=== PATIENT | male | born 1950 | race Caucasian/White ===

== ENCOUNTER 2021-06-01 08:56 | Outpatient (CLI) | payer MEDICARE, SELFPAY ==
--- NOTE | ~2021-06-01 | CT_ITS ---
EXAMINATION: CT abdomen pelvis wo con DATE: 06/01/2021 09:18 INDICATION: Right flank pain TECHNIQUE: Computed tomography (CT) of the abdomen and pelvis was performed without intravenous contr ast. The dose-length product (DLP) was 180.98 mGy-cm. Automated exposure control and iterative recons truction technique were employed. COMPARISON: None FINDINGS: The lung bases are clear. The heart size is normal. The liver, spleen, pancreas, gallbladde r, and adrenal glands are normal. The kidneys are unremarkable. No stones are identified in the kidne ys, ureters, or bladder. There is no hydronephrosis or hydroureter. There is calcified atherosclerosi s of the aorta and many of the other arteries. No pathologically enlarged abdominal or pelvic lymph n odes are identified. There is no free intraperitoneal gas or evidence of bowel obstruction. There is moderate lumbar spondylosis. IMPRESSION: 1. No CT correlate for the patient's symptoms. Reviewed, dictated and finalized at location A.
--- NOTE | ~2021-06-01 | XR_ITS ---
EXAMINATION: XR abdomen/kub 1V INDICATION: Right flank pain and hematuria TECHNIQUE: Supine views of the abdomen were obtained on 2 radiographs. COMPARISON: CT from today FINDINGS: No urolithiasis is identified. The bowel gas pattern is normal. 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 Calcification projecting between the left L2 and L3 transverse processes reflects calc ified atherosclerosis. There is levoscoliosis and moderate spondylosis of the lumbar spine. IMPRESSION: 1. No urolithiasis identified. Reviewed, dictated and finalized at location A.
== END 2021-06-01 08:57 | disposition home or self-care (01) ==
LOC: ANHIMG 08:57
PROVIDERS: PCP Family Medicine; Visit Provider Physician Assistant Medical
DX: R10.9 Unspecified abdominal pain (principal); R31.9 Hematuria, unspecified
CPT/HCPCS: 74018; 74176

== ENCOUNTER 2022-01-08 00:01 | Day surgery (SDC) | payer MEDICARE, SELFPAY ==
[2021-12-28 10:32] VITALS: BMI 23.1
[2022-01-08 09:35] VITALS: BP 144/92; PULSE 62; RESP 20; TEMP 36.4; O2SAT 100; BMI 23.4
[2022-01-08] MEDS: LACTATED RINGERS 1,000 ML 150 ML IV CONT (09:49)
[2022-01-08 09:50] LABS: Glucose Point of Care 106 mg/dl (65-105)
--- NOTE | 2022-01-08 10:01 | WPDANESEPPF ---
Anes - Initial Pre Proc Eval Procedure: Operation Date: 01/08/22 11:00 Proposed Procedures p Screening Colonoscopy - Delfin Boateng MD Date/Time: 01/08/22 10:01 Surgeon: Delfin Boateng MD Pre Op Diagnosis: hx of colon polyps Patient Data Age: 71 Gender: M Height: 1.78 m Weight: 74.1 kg Last Vital Signs Temp 97.5 F L 01/08/22 09:35 Pulse 62 01/08/22 09:35 Resp 20 01/08/22 09:35 BP 144/92 H 01/08/22 09:35 Pulse Ox 100 01/08/22 09:35 Allergies Allergy/AdvReac Type Severity Reaction Status Date / Time No Known Allergies Allergy Mild Verified 01/08/22 09:34 Home Medications Medication Instructions Recorded Confirmed Type cyanocobalamin (vitamin B-12) 1,000 mcg PO DAILY #100 cap 12/09/19 12/28/21 Rx 1,000 mcg capsule cholecalciferol (vitamin D3) 25 mcg PO DAILY 12/28/21 12/28/21 History [Vitamin D3] lisinopril 10 mg PO DAILY 12/28/21 12/28/21 History lovastatin 10 mg PO DAILY 12/28/21 12/28/21 History metformin 500 mg PO DAILY 12/28/21 12/28/21 History Laboratory Tests 01/08/22 09:47 POC Capillary Glucose 106 mg/dl H mg/dl (65-105) Patient hx anesthesia problems: none Family hx anesthesia problems: none Results Review: All pre-operative results and documents have been reviewed as part of the pre-operative evaluation. [facility] Family History Family History Other Depression Diabetes mellitus Family history of cardiovascular disease Hypertension Social History Social History (Updated 12/14/21 @ 09:24 by STACI Iyer) Smoking status: Former smoker Tobacco type: cigarettes Alcohol intake: current Drinks per week: 7 Alcohol use details: wine Substance use type: does not use Living arrangements: with family Gender identity (if verbalized by the patient): Male Spiritual care concerns: No Anes - Eval Final PreProcedure Day of Procedure 01/08/22 10:01 Patient weight: normal Heart: regular rate and rhythm Lungs: clear to auscultation Airway: Mallampati scale class II Neurological: alert and oriented Last oral intake: >/= 8 hours ASA classification: III Emergent: no Anesthetic plan: proceed Anesthesia type and monitoring: general GIVS and standard monitoring Results Review: All pre-operative results and documents have been reviewed as part of the pre-operative evaluation. Informed Consent: The patient's anesthetic plan and its attendant risks and benefits were discussed with the patient/family/POA. Questions were solicited and answers provided to the satisfaction of the patient/family/POA.
--- NOTE | 2022-01-08 10:24 | P.CONGI_ITS ---
Assessment and Plan Assessment and plan (1) History of colon polyps: Code(s): Z86.010 - Personal history of colonic polyps Status: Acute Assessment and Plan: Patient has a prior history of adenomatous colon polyps. Plan is for surveillance colonoscopy at this time. Further recommendations will be given after endoscopy. GI Consult Note Consult date/time: 01/08/22 10:24 HPI: Randall King is a 71 year old male Presents for screening colonoscopy. Patient's current weight appetite and bowel movements are normal. He denies abdominal pain. He has had no bleeding. He does have a prior history of colon polyps. Most recent colonoscopy 2017. Family history is noncontribut ory. patient presents today for neoplasia screening. Review of Systems Review of Systems: All systems reviewed & are unremarkable except as noted in HPI and below PMFSH Family History Family History Other Depression Diabetes mellitus Family history of cardiovascular disease Hypertension Social History Social History (Updated 12/14/21 @ 09:24 by STACI Iyer) Smoking status: Former smoker Tobacco type: cigarettes Alcohol intake: current Drinks per week: 7 Alcohol use details: wine Substance use type: does not use Living arrangements: with family Gender identity (if verbalized by the patient): Male Spiritual care concerns: No Meds Home Medications and Allergies Home Medications Medication Instructions Recorded Confirmed Type cyanocobalamin (vitamin B-12) 1,000 mcg PO DAILY #100 cap 12/09/19 12/28/21 Rx 1,000 mcg capsule cholecalciferol (vitamin D3) 25 mcg PO DAILY 12/28/21 12/28/21 History [Vitamin D3] lisinopril 10 mg PO DAILY 12/28/21 12/28/21 History lovastatin 10 mg PO DAILY 12/28/21 12/28/21 History metformin 500 mg PO DAILY 12/28/21 12/28/21 History Allergies Allergy/AdvReac Type Severity Reaction Status Date / Time No Known Allergies Allergy Mild Verified 01/08/22 09:34 Vital Signs Vital Signs - 24 hr 01/08/22 09:35 Temperature 97.5 F L Pulse Rate 62 Respiratory Rate 20 Blood Pressure 144/92 H Pulse Oximetry 100 Exam Narrative: Physical exam reveals patient to be alert. Vital signs stable. HEENT exam is unremarkable. Patient is anicteric. Lungs are clear to auscultation and percussion. Heart is without murmur or extra sounds. Abdominal exam bowel sounds are present soft nontender with no organomegaly. Digital external rectal exam is normal.
--- NOTE | 2022-01-08 10:54 | SUR.OPER ---
Sigmoid Colon Polypectomies- only 2 retrieved of [address] Boateng notified by Anna Hernandez RN, Christen Rivera RN, Renate Santos.
[2022-01-08 10:55] VITALS: BP 95/69; PULSE 77; RESP 18; O2SAT 97
[2022-01-08 11:05] VITALS: BP 102/70; PULSE 84; RESP 20; O2SAT 100
[2022-01-08 11:15] VITALS: BP 118/88; PULSE 71; RESP 19; O2SAT 99
== END 2022-01-08 11:20 | disposition home or self-care (01) ==
PROVIDERS: PCP Family Medicine; Visit Provider Internal Medicine Gastroenterology
PROC: 0DJD8ZZ Inspection of Lower Intestinal Tract, Via Natural or Artificial Opening Endoscopic (ICD-10-PCS; CPT 45378; principal; 2022-01-08 11:00)
DX: Z12.11 Encounter for screening for malignant neoplasm of colon (principal); D12.5 Benign neoplasm of sigmoid colon; K63.5 Polyp of colon; Z87.891 Personal history of nicotine dependence
CPT/HCPCS: 45385; 82948; 88305; J2704; J7120

== ENCOUNTER 2023-03-29 09:14 | Outpatient (CLI) | payer MEDICARE, SELFPAY ==
[2023-03-29 15:21] LABS: Basophils Absolute Auto 0.1 K/mm3 (0.0-0.1); Eosinophils Absolute Auto 0.1 K/mm3 (0-0.3); Eosinophils Percent Auto 2.3 % (0-4.4); Hematocrit 40.7 % (42.0-52.0); Hemoglobin 13.4 g/dL (14.0-18.0); Immature Granulocyte Absolute 0.02 K/mm3 (0.00-0.031); Immature Granulocyte Percent A 0.3 % (0-0.5); Lymphocytes Absolute Auto 1.98 K/mm3 (0.9-3.2); Lymphocytes Percent Auto 33.1 % (18.3-44.2); Mean Corpuscular HGB Conc 32.9 g/dl (32-36); Mean Corpuscular Hemoglobin 29.4 pg (26-34); Mean Corpuscular Volume 89.3 fl (80-100); Mean Platelet Volume 8.8 fl (7.4-10.4); Monocytes Absolute Auto 0.6 K/mm3 (0.1-0.6); Monocytes Percent Auto 9.5 % (2.6-8.5); Neutrophils Absolute Auto 3.2 K/mm3 (1.3-6.7); Neutrophils Percent Auto 53.8 % (45.5-73.1); Platelet Count Result 295 k/mm3 (150-375); Red Blood Count 4.56 M/mm3 (4.6-6.20); Red Cell Distribution Width 13.2 % (11.5-14.5)
[2023-03-29 17:16] LABS: Alanine Aminotransferase 26 U/L (6-50); Albumin Level 4.5 g/dL (3.5-5.1); Alkaline Phosphatase 64 U/L (38-126); Anion Gap 8 mmol/L (8-16); Aspartate Amino Transferase 38 U/L (17-59); Bilirubin,Total 0.6 mg/dL (0.2-1.3); Blood Urea Nitrogen 20 mg/dL (9-20); Calcium 9.1 mg/dL (8.4-10.2); Carbon Dioxide 26 mmol/L (22-30); Chloride 103 mmol/L (98-107); Cholesterol 189 mg/dL (0-200); Estimated Glomerular Filt Rate > 60; Glucose 107 mg/dL (65-110); HDL Direct 44 mg/dL; Potassium 4.2 mmol/L (3.4-5.0); Sodium 137 mmol/L (137-145); Triglycerides 125 mg/dL (<150)
[2023-03-29 17:27] LABS: LDL Cholesterol Direct 130 mg/dL
[2023-03-29 18:27] LABS: Hemoglobin A1C 6.1 % (<5.7)
== END 2023-03-29 09:15 | disposition home or self-care (01) ==
LOC: ANHGOSHLAB 09:16
PROVIDERS: PCP Family Medicine; Visit Provider Physician Assistant
DX: E78.2 Mixed hyperlipidemia (principal); I10 Essential (primary) hypertension; R73.03 Prediabetes; Z79.899 Other long term (current) drug therapy; Z12.5 Encounter for screening for malignant neoplasm of prostate
CPT/HCPCS: 36415; 80053; 80061; 83036; 84153; 84443; 85025; G0103

== ENCOUNTER 2023-10-04 09:09 | Outpatient (CLI) | payer MEDICARE, SELFPAY ==
[2023-10-04 19:40] LABS: Alanine Aminotransferase 26 U/L (6-50); Albumin Level 4.3 g/dL (3.5-5.1); Alkaline Phosphatase 71 U/L (38-126); Anion Gap 8 mmol/L (8-16); Aspartate Amino Transferase 40 U/L (17-59); Bilirubin,Total 0.5 mg/dL (0.2-1.3); Blood Urea Nitrogen 20 mg/dL (9-20); Calcium 9.2 mg/dL (8.4-10.2); Carbon Dioxide 27 mmol/L (22-30); Chloride 104 mmol/L (98-107); Cholesterol 207 mg/dL (0-200); Estimated Glomerular Filt Rate > 60; Glucose 110 mg/dL (65-110); HDL Direct 49 mg/dL; Sodium 139 mmol/L (137-145); Triglycerides 132 mg/dL (<150)
[2023-10-04 19:47] LABS: Hemoglobin A1C 6.2 % (<5.7)
[2023-10-04 19:51] LABS: LDL Cholesterol Direct 131 mg/dL
== END 2023-10-04 09:10 | disposition home or self-care (01) ==
PROVIDERS: PCP Family Medicine; Visit Provider Family Medicine
DX: E78.5 Hyperlipidemia, unspecified (principal); R73.03 Prediabetes
CPT/HCPCS: 36415; 80053; 80061; 83036

== ENCOUNTER 2024-03-31 09:23 | Outpatient (CLI) | payer MEDICARE, SELFPAY ==
[2024-03-31 13:21] LABS: Basophils Absolute Auto 0.1 K/mm3 (0.0-0.1); Eosinophils Absolute Auto 0.1 K/mm3 (0-0.3); Eosinophils Percent Auto 1.4 % (0-4.4); Hematocrit 40.1 % (42.0-52.0); Hemoglobin 13.4 g/dL (14.0-18.0); Immature Granulocyte Absolute 0.02 K/mm3 (0.00-0.031); Immature Granulocyte Percent A 0.3 % (0-0.5); Lymphocytes Absolute Auto 1.96 K/mm3 (0.9-3.2); Lymphocytes Percent Auto 33.9 % (18.3-44.2); Mean Corpuscular HGB Conc 33.4 g/dl (32-36); Mean Corpuscular Volume 89.7 fl (80-100); Mean Platelet Volume 8.9 fl (7.4-10.4); Monocytes Absolute Auto 0.7 K/mm3 (0.1-0.6); Monocytes Percent Auto 11.2 % (2.6-8.5); Neutrophils Percent Auto 52.2 % (45.5-73.1); Platelet Count Result 305 k/mm3 (150-375); Red Blood Count 4.47 M/mm3 (4.6-6.20); Red Cell Distribution Width 13.1 % (11.5-14.5); White Blood Count 5.8 K/mm3 (4.5-10.0)
[2024-03-31 13:56] LABS: Alanine Aminotransferase 22 U/L (6-50); Albumin Level 4.6 g/dL (3.5-5.1); Alkaline Phosphatase 62 U/L (38-126); Anion Gap 8 mmol/L (4-12); Aspartate Amino Transferase 55 U/L (17-59); Bilirubin,Total 0.6 mg/dL (0.2-1.3); Blood Urea Nitrogen 25 mg/dL (9-20); Calcium 9.3 mg/dL (8.4-10.2); Carbon Dioxide 25 mmol/L (22-30); Chloride 106 mmol/L (98-107); Cholesterol 195 mg/dL (0-200); Estimated Glomerular Filt Rate > 60; Glucose 114 mg/dL (65-110); HDL Direct 48 mg/dL; Potassium 4.1 mmol/L (3.4-5.0); Sodium 139 mmol/L (137-145); Triglycerides 137 mg/dL (<150)
[2024-03-31 14:04] LABS: Vitamin D 25 Hydroxy 62.9 ng/mL
[2024-03-31 14:07] LABS: LDL Cholesterol Direct 124 mg/dL
[2024-03-31 14:48] LABS: Vitamin B12 > 1000.0 pg/mL (239-931)
== END 2024-03-31 09:24 | disposition home or self-care (01) ==
PROVIDERS: PCP Family Medicine; Visit Provider Family Medicine
DX: D64.9 Anemia, unspecified (principal); R73.03 Prediabetes; R29.890 Loss of height; E78.5 Hyperlipidemia, unspecified; E55.9 Vitamin D deficiency, unspecified
CPT/HCPCS: 36415; 80053; 80061; 82306; 82607; 83036; 85025

== ENCOUNTER 2024-05-14 07:19 | Outpatient (CLI) | payer MEDICARE, SELFPAY ==
[2024-06-04 12:39] VITALS: BMI 23.6
--- NOTE | 2024-06-04 12:39 | WPDSLEEPSTUD ---
Sleep Study Date of Study: 05/14/24 Ordering Provider: Miguel Aviles MD Interpreting Physician: Merline Giordano DO Sleep Study Type: CPAP Titration Height: 1.78 m Weight: 74.843 kg Body Mass Index: 23.6 Neck Circumference (inches): 16 [place]: 7 Reason for Sleep Study Increased daytime hypersomnia despite using CPAP Sleep History The patient is 74 year with DONNA on CPAP that had a sleep study ordered by his primary care physician for worsening daytime hypersomnia. The patient denies awakening from sleep short of breath. He rarely awakens at night with heartburn, belching or. He occasionally has trouble sleeping has a cold. He denies waking up gasping for air throughout the night. He rarely sweats excessively at night. He denies having heart palpitations or irregular heartbeats during the night. He frequently falls asleep during the day but never while driving. He denies sleep paralysis, cataplexy and hypnagogic / hypnopompic hallucinations. He denies feeling afraid of going to sleep. He denies having nightmares. He denies remembering his dreams. He rarely has thoughts racing through his mind. He rarely feels sad or depressed. He denies having anxiety. He rarely has muscular tension. He denies noticing parts of his body jerk. He denies kicking during the night. He denies having crawling and aching feelings in his legs and rarely has leg pain during the he denies awakening with jaw pain in the morning. He frequently is bothered by pain during the day but never awakened by pain during the night. He denies waking feeling stiff morning. He rarely wakes up with sore or achy muscles. He denies waking up with pain in the neck, spine other joints. He goes to bed between 10:30-11 p.m. on both weekdays and weekends. It takes him 5-10 minutes to fall asleep. He wakes up several times throughout the night tossing and turning. He wakes up between 5:30-6 a.m. on both weekdays and weekends. He typically gets 7 hours of sleep per night. He does not stay in bed after waking up in the morning. Currently lives with his . He denies consuming any caffeinated beverages within 2 hours of bedtime. He denies engaging in physical exercise before bedtime. He denies watching television before falling asleep. He will take naps in the afternoon or the evening. He consumes 12 oz of caffeinated beverage per day. He consumes a glass of wine every night. He denies recreational drug use. [facility] Family History Family History Other Depression Diabetes mellitus Family history of cardiovascular disease Hypertension Social History Social History Smoking status: Former smoker Tobacco type: cigarettes Alcohol intake: current Drinks per week: 7 Alcohol use details: wine Substance use type: does not use Lack of Transportation: No Lack of Food: Never True Current Housing: I Have Housing Concerned About Future Housing: No Difficulty Paying Gas/Electric Bills: No Difficulty Paying for Meds: No Currently Unemployed: No Education: Bachelor's Degree Difficulty w/ Childcare or Family Care: No Living arrangements: with family Gender identity (if verbalized by the patient): Male Spiritual care concerns: No Medications Home Medications Medication Instructions Recorded Confirmed Type cyanocobalamin (vitamin B-12) 1,000 mcg PO DAILY #100 caps 12/09/19 04/06/24 Rx 1,000 mcg capsule cholecalciferol (vitamin D3) 25 25 mcg PO DAILY 12/28/21 04/06/24 History mcg (1,000 unit) tablet (Vitamin D3) aspirin 81 mg tablet,delayed 81 mg PO DAILY 07/23/22 04/06/24 History release (Adult Low Dose Aspirin) sildenafil 100 mg tablet (Viagra) 100 mg PO DAILY PRN sexual 04/01/23 04/06/24 Rx activity #30 tabs lisinopril 10 mg tablet See Rx Instructions .Route 04/15/24 Rx .COMPLEX
== END 2024-05-15 06:05 | disposition home or self-care (01) ==
PROVIDERS: PCP Family Medicine; Visit Provider Family Medicine
DX: G47.33 Obstructive sleep apnea (adult) (pediatric) (principal)
CPT/HCPCS: 95811

== ENCOUNTER 2024-10-13 09:03 | Outpatient (CLI) | payer MEDICARE, SELFPAY ==
[2024-10-13 14:00] LABS: Alanine Aminotransferase 18 U/L (6-50); Albumin Level 4.4 g/dL (3.5-5.1); Alkaline Phosphatase 65 U/L (38-126); Anion Gap 10 mmol/L (4-12); Aspartate Amino Transferase 42 U/L (17-59); Bilirubin,Total 0.6 mg/dL (0.2-1.3); Blood Urea Nitrogen 27 mg/dL (9-20); Calcium 8.9 mg/dL (8.4-10.2); Carbon Dioxide 26 mmol/L (22-30); Chloride 102 mmol/L (98-107); Cholesterol 188 mg/dL (0-200); Estimated Glomerular Filt Rate > 60; Glucose 96 mg/dL (65-110); HDL Direct 46 mg/dL; Sodium 138 mmol/L (137-145); Triglycerides 123 mg/dL (<150)
[2024-10-13 14:10] LABS: Vitamin D 25 Hydroxy 63.2 ng/mL
[2024-10-13 14:11] LABS: LDL Cholesterol Direct 108 mg/dL
[2024-10-13 14:40] LABS: MALB Creatinine Ratio 41.6 mg/g (0-30); Microalbumin Urine Random 31.2 mg/L (0-16.7)
[2024-10-13 19:23] LABS: Hemoglobin A1C 6.1 % (<5.7)
== END 2024-10-13 09:04 | disposition home or self-care (01) ==
LOC: ANHGOSHLAB 09:04
PROVIDERS: PCP Family Medicine; Visit Provider Family Medicine
DX: R29.890 Loss of height (principal); E11.9 Type 2 diabetes mellitus without complications; E55.9 Vitamin D deficiency, unspecified
CPT/HCPCS: 36415; 80053; 80061; 82043; 82306; 83036

== ENCOUNTER 2025-01-06 18:20 | Emergency (ER) | payer MEDICARE, SELFPAY ==
[2025-01-06 18:34] VITALS: BP 154/89; PULSE 65; RESP 16; TEMP 37.1; O2SAT 99
[2025-01-06 18:42] LABS: EDUAAPPEAR Cloudy; EDUABILI Negative (Negative); EDUABLOOD 3+ (Negative); EDUACOLOR1 Dark; EDUAGLUCOSE Negative (Negative); EDUAKETONE Negative (Negative); EDUALEUKO Negative (Negative); EDUANITRATE Negative (Negative); EDUAPH 5.5; EDUAPROTEIN 2+ (Negative); EDUAUROBILI 0.2
--- NOTE | 2025-01-06 18:54 | ED.MALEGU ---
HPI - Male Genitourinary General Chief complaint: Urogenital-Male Stated complaint: UTI Time Seen by Provider: 01/06/25 18:55 Related Data Home Medications ?Medication ?Instructions ?Recorded ?Confirmed ?Last Taken ?Type cholecalciferol (vitamin D3) 25 25 mcg PO DAILY 12/28/21 10/16/24 01/07/22 History mcg (1,000 unit) tablet (Vitamin D3) aspirin 81 mg tablet,delayed 81 mg PO DAILY 07/23/22 10/16/24 Unknown History release (Adult Low Dose Aspirin) Allergies Allergy/AdvReac Type Severity Reaction Status Date / Time No Known Allergies Allergy Mild Verified 10/16/24 10:25 PMFSH Family History Family History Other Depression Diabetes mellitus Family history of cardiovascular disease Hypertension Social History Social History (Updated 10/16/24 @ 10:28 by Nannette Madrid MA) Smoking status: Former smoker Tobacco type: cigarettes Alcohol intake: current Drinks per week: 7 Alcohol use details: wine Substance use: never Substance use type: does not use Do You Feel Safe in your Home?: Yes Lack of Transportation: No Lack of Food: Never True Current Housing: I Have Housing Concerned About Future Housing: No Difficulty Paying Gas/Electric Bills: No Difficulty Paying for Meds: No Currently Unemployed: No Education: Bachelor's Degree Difficulty w/ Childcare or Family Care: No Living arrangements: with family Gender identity (if verbalized by the patient): Male Spiritual care concerns: No Course Vital Signs Vital signs: Vital Signs Temperature 98.7 F 01/06/25 18:34 Pulse Rate 65 01/06/25 18:34 Respiratory Rate 16 01/06/25 18:34 Blood Pressure 154/89 H 01/06/25 18:34 Pulse Oximetry 99 01/06/25 18:34 Temperature 98.7 F 01/06/25 18:34 Pulse Rate 65 01/06/25 18:34 Respiratory Rate 16 01/06/25 18:34 Blood Pressure 154/89 H 01/06/25 18:34 Pulse Oximetry 99 01/06/25 18:34 MDM - Male Genitourinary Lab Data Labs: Lab Results 01/06/25 Range/Units 18:33 POC Urine Color Dark POC Urine Clarity Cloudy POC Urine pH 5.5 POC Ur Specif [place] 1.020 POC Urine Protein 2+ (Negative) POC Ur Glucose (UA) Negative (Negative) POC Urine Ketones Negative (Negative) POC Urine Blood 3+ (Negative) POC Urine Nitrite Negative (Negative) POC Urine Bilirubin Negative (Negative) POC Urine Urobilinogen 0.2 POC U Leukocyte Esteras Negative (Negative) Discharge Plan Discharge Patient Language: [place] Prescriptions: No Action cyanocobalamin (vitamin B-12) 1,000 mcg capsule 1,000 mcg PO DAILY Qty: 100 0RF sildenafil [Viagra] 100 mg tablet 100 mg PO DAILY PRN (Reason: sexual activity) Qty: 30 1RF Rx Instructions: administer 30 minutes to 4 hours before activity aspirin [Adult Low Dose Aspirin] 81 mg tablet,delayed release (DR/EC) 81 mg PO DAILY cholecalciferol (vitamin D3) [Vitamin D3] 25 mcg (1,000 unit) Tablet 25 mcg PO DAILY (DME) CPAP See Rx Instructions .Route .MEDSUPPLY Qty: 1 0RF Rx Instructions: Resmed AirSense 11 CPAP at 6 cm H2O, size medium Renetta UniSmartwear FFM, CPAP filters/tubing and heated humidity. metformin 500 mg tablet extended release 24 hr See Rx Instructions .ROUTE .COMPLEX Qty: 90 3RF Dose Instruction: TAKE 1 TABLET EVERY EVENING Rx Instructions: TAKE 1 TABLET EVERY EVENING lovastatin 10 mg tablet See Rx Instructions .ROUTE .COMPLEX Qty: 90 3RF Dose Instruction: TAKE 1 TABLET EVERY EVENING Rx Instructions: TAKE 1 TABLET EVERY EVENING lisinopril 10 mg tablet See Rx Instructions .ROUTE .COMPLEX Qty: 90 3RF Dose Instruction: TAKE 1 TABLET DAILY Rx Instructions: TAKE 1 TABLET DAILY Follow-up/Referrals: Miguel Aviles MD [Primary Care Provider] -
--- NOTE | 2025-01-06 19:20 | ED.MALEGU ---
HPI - Male Genitourinary General Chief complaint: Urogenital-Male Stated complaint: UTI Time Seen by Provider: 01/06/25 18:55 Source: patient and RN notes reviewed Mode of arrival: ambulatory Limitations: no limitations History of Present Illness HPI Narrative: 74-year-old male presents to the [facility] complaining of blood in his urine since noon. Patient also states he has right flank pain that started more in his left middle back and now starting to radiate into his right flank. Patient states he has a history of microscopic hematuria and was evaluated by Urology without any significant findings. Patient was totally always had ?little bit of blood in his urine?. Patient states he has never seen his urine be blood tinged before. Patient has no history of urinary tract infections or kidney stone. Denies any dysuria, fever, chills, nausea, abdominal pain. Related Data Home Medications ?Medication ?Instructions ?Recorded ?Confirmed ?Last Taken ?Type cholecalciferol (vitamin D3) 25 25 mcg PO DAILY 12/28/21 10/16/24 01/07/22 History mcg (1,000 unit) tablet (Vitamin D3) aspirin 81 mg tablet,delayed 81 mg PO DAILY 07/23/22 10/16/24 Unknown History release (Adult Low Dose Aspirin) Allergies Allergy/AdvReac Type Severity Reaction Status Date / Time No Known Allergies Allergy Mild Verified 10/16/24 10:25 Review of Systems Review of Systems: CONSTITUTIONAL: Denies fever, chills, or sweats. EYES: Denies visual changes, redness, or discharge. ENT: Denies rhinorrhea, congestion, sore throat, or otalgia. CARDIOVASCULAR: Denies chest pain, palpitations, or edema. RESPIRATORY: Denies cough or dyspnea. GASTROINTESTINAL: Denies abdominal pain, nausea, vomiting, or diarrhea. GENITOURINARY: Denies dysuria. Positive for hematuria and flank pain. SKIN: Denies rash or itching. MUSCULOSKELETAL: Denies back pain, joint pain, or myalgia. NEUROLOGIC: Denies headache, numbness, or weakness. PSYCHIATRIC: Denies anxiety or depression. All other systems reviewed are negative, except as documented in HPI. [facility] Family History Family History Other Depression Diabetes mellitus Family history of cardiovascular disease Hypertension Social History Social History Smoking status: Former smoker Tobacco type: cigarettes Alcohol intake: current Drinks per week: 7 Alcohol use details: wine Substance use: never Substance use type: does not use Do You Feel Safe in your Home?: Yes Lack of Transportation: No Lack of Food: Never True Current Housing: I Have Housing Concerned About Future Housing: No Difficulty Paying Gas/Electric Bills: No Difficulty Paying for Meds: No Currently Unemployed: No Education: Bachelor's Degree Difficulty w/ Childcare or Family Care: No Living arrangements: with family Gender identity (if verbalized by the patient): Male Spiritual care concerns: No Comments At the time of my signature, I reviewed and agree with the nursing past medical, surgical, social, and family history. There is no relevant family history pertinent to the patient complaint. Exam Narrative: GENERAL: This is a well-nourished, well-developed adult, in no apparent distress. They are non ill-appearing, nontoxic appearing. HEAD: normocephalic, atraumatic. EYES: Sclera clear/white. Vision is grossly intact. EARS: External ears normal, Hearing grossly intact. NOSE: External nose normal THROAT: Mucous membranes moist, NECK: Normal range of motion CARDIOVASCULAR: Regular rate and rhythm without murmurs, gallops, or rubs. RESPIRATORY: Clear to auscultation. Breath sounds equal bilaterally. No wheezes, rales, or rhonchi. GASTROINTESTINAL: Abdomen soft, non-tender, nondistended. Bowel sounds are active. No hepato-splenomegaly, or palpable masses. No guarding. SKIN: warm, Dry, intact with no suspicious lesions or rash, good texture and turgor. NEURO: awake, alert, and oriented to person, place and time. There were no obvious focal neurologic abnormalities. EXTREMITIES: No joint tenderness, effusion, or edema noted. BACK: Nontender without deformity. Right CVA tenderness. Course Course Level of Care: Express Care Visit Vital Signs Vital signs: Vital Signs Temperature 98.7 F 01/06/25 18:34 Pulse Rate 65 01/06/25 18:34 Respiratory Rate 16 01/06/25 18:34 Blood Pressure 154/89 H 01/06/25 18:34 Pulse Oximetry 99 01/06/25 18:34 Temperature 98.7 F 01/06/25 18:34 Pulse Rate 65 01/06/25 18:34 Respiratory Rate 16 01/06/25 18:34 Blood Pressure 154/89 H 01/06/25 18:34 Pulse Oximetry 99 01/06/25 18:34 Reviewed Transfer Transfered to: [facility] Transportation: Other (Private vehicle) Transfer rationale: Gross hematuria, right flank pain, higher level care, further evaluation, advanced imaging, patient agreed to [facility] Accepting physician: Monique UNGER MDM - Male Genitourinary MDM Narrative Medical decision making narrative: Patient has gross hematuria along with right flank pain and right CVA tenderness. Patient urine dipstick is negative for any signs of infection, he has blood and proteinuria present. This facility does not have CT capabilities and it is recommended that he seeks further evaluation and management in the emergency department. Patient has no history of renal stones. Patient is agreeable to go to [facility] emergency department. Called and gave report to Monique UNGER who accepted patient care. Patient was advised to remain NPO and proceed to the emergency department immediately. Differential Diagnosis Differential diagnosis: Likely urinary tract infection, prostatitis and other (Renal stone, hemorrhage) Lab Data Attestation: I reviewed the patient's lab results. Labs: Lab Results 01/06/25 Range/Units 18:33 POC Urine Color Dark POC Urine Clarity Cloudy POC Urine pH 5.5 POC Ur Specif [place] 1.020 POC Urine Protein 2+ (Negative) POC Ur Glucose (UA) Negative (Negative) POC Urine Ketones Negative (Negative) POC Urine Blood 3+ (Negative) POC Urine Nitrite Negative (Negative) POC Urine Bilirubin Negative (Negative) POC Urine Urobilinogen 0.2 POC U Leukocyte Esteras Negative (Negative) Critical Care Time Critical Care Time Critical Care Time: No Discharge Plan Discharge Clinical Impression: Gross hematuria Patient Disposition: Acute Care Hospital Condition: Stable Patient Language: [place] Prescriptions: No Action cyanocobalamin (vitamin B-12) 1,000 mcg capsule 1,000 mcg PO DAILY Qty: 100 0RF sildenafil [Viagra] 100 mg tablet 100 mg PO DAILY PRN (Reason: sexual activity) Qty: 30 1RF Rx Instructions: administer 30 minutes to 4 hours before activity aspirin [Adult Low Dose Aspirin] 81 mg tablet,delayed release (DR/EC) 81 mg PO DAILY cholecalciferol (vitamin D3) [Vitamin D3] 25 mcg (1,000 unit) Tablet 25 mcg PO DAILY (DME) CPAP See Rx Instructions .Route .MEDSUPPLY Qty: 1 0RF Rx Instructions: Resmed AirSense 11 CPAP at 6 cm H2O, size medium Renetta Dreamwear FFM, CPAP filters/tubing and heated humidity. metformin 500 mg tablet extended release 24 hr See Rx Instructions .ROUTE .COMPLEX Qty: 90 3RF Dose Instruction: TAKE 1 TABLET EVERY EVENING Rx Instructions: TAKE 1 TABLET EVERY EVENING lovastatin 10 mg tablet See Rx Instructions .ROUTE .COMPLEX Qty: 90 3RF Dose Instruction: TAKE 1 TABLET EVERY EVENING Rx Instructions: TAKE 1 TABLET EVERY EVENING lisinopril 10 mg tablet See Rx Instructions .ROUTE .COMPLEX Qty: 90 3RF Dose Instruction: TAKE 1 TABLET DAILY Rx Instructions: TAKE 1 TABLET DAILY Follow-up/Referrals: Miguel Aviles MD [Primary Care Provider] - Time of Disposition: 19:19
== END 2025-01-06 19:19 | disposition short-term general hospital (02) ==
PROVIDERS: Nurse Practitioner; PCP Family Medicine
DX: R31.0 Gross hematuria (principal); Z87.891 Personal history of nicotine dependence; Z79.82 Long term (current) use of aspirin
CPT/HCPCS: 81003; 99212; G0463

== ENCOUNTER 2025-01-06 19:44 | Emergency (ER) | payer MEDICARE, SELFPAY ==
--- NOTE | ~2025-01-06 | CT_ITS ---
Non-contrast CT scan of the Abdomen and Pelvis Clinical indication: Hematuria Technique: 2.5 mm axial scans were obtained through the abdomen and pelvis without intravenous or or al contrast. Dose reduction technique was used on this scan by utilizing automated exposure control a nd iterative reconstruction technique. The dose-length product (DLP) was 397.34 mGy-cm. COMPARISON: 06/01/2021 Findings: Images through the lung bases reveal no abnormalities. There is a 2 mm on the proximal right ureter (axial image 88), with minimal right hydronephrosis. No left renal or left ureteral stone. No left hydronephrosis. The liver, spleen, pancreas, gallbladder, and adrenals appear normal. There are atherosclerotic calci fications of the aorta. . There is no evidence of bowel obstruction. Images through the pelvis were performed. There is no evidence of ascites or lymphadenopathy. Urinary bladder unremarkable. Prostate gland mildly enlarged. Impression: 2 mm proximal right ureteral stone with minimal right hydronephrosis. Reviewed, dictated and finalized at [facility]. Impression: 2 mm proximal right ureteral stone with minimal right hydronephrosis.
[2025-01-06 19:45] VITALS: BP 159/105; PULSE 77; RESP 15; TEMP 36.3; O2SAT 99
--- OUTSIDE RECORDS SUMMARY | 2025-01-06 19:46 | XMS_ITS | Encounter Summary ---
Author Organization [facility] Address [address] [facility] [place] [address] Care Team Providers Care Flight Test Supervisor Name Role Phone Miguel Aviles MD Primary Care Provider +1- [phone] Encounter Details Date Type Department Care Team (Late st Contact Info) Description 06/20/2021 Lab Requisition [facility] [address] [place] [address] Jeanna Blevins MD [address], [place] [id number] Illness, unspecified Social History Tobacco Use Types Packs/Day Years Used Date Smoking Tobacco: Never Assessed Sex and Gender Information Value Date Recorded Sex Assigned at Not on file Gender Identity Not on file Sexual Orientation Not on file documented as of this encounter Plan of Treatment Not on file documented as of this encounter Procedures Procedure Name Priority Date/Time Associated Diagnosis Comments PATH CONSULT ON REFERRED CASE Routine 06/16/2021 1:26 PM CDT Illness, unspecified documented in this encounter Results * PATH CONSULT ON REFERRED CASE (06/16/2021 1:26 PM CDT) Final Diagnosis URINE, VOIDED, THIN PREP, CYTOLOGY (OSC: [id number]; 06/16/2021): - Adequate for evaluation - Negative for high-grade urothelial cell carcinoma - Urothelial cells and red blood cells 06/21/2021 3:00 PM CDT [facility] Microscopic Description and Comment Microscopic examination substantiates the final diagnosis. 06/21/2021 3:00 PM CDT [facility] Clinical History HEMATURIA, CYSTOSCOPY NEGATIVE 06/21/2021 3:00 PM CDT [facility] Materials Received Prepared slide received from [facility] [place] [facility] [id number]. All material will be returned. 06/21/2021 3:00 PM CDT [facility] Disclaimer The performance characteristics of all immunohistochemical and indirect immunofluorescence stains (if any) cited in this report were determined by the Histopathology Laboratory of [facility]. Some of these tests were developed by our own laboratory and have not been cleared or approved by the US Food and Drug Administration. The FDA does not require this test to go through premarket FDA review. These tests are used for clinical purposes. They should not be regarded as investigational or for research. This laboratory is certified under the Clinical Laboratory Improvement Amendments (CLIA) as qualified to perform high complexity clinical laboratory testing. This case has been personally reviewed and interpreted by the attending (teaching) pathologist. 06/21/2021 3:00 PM CDT [facility] Case Report Surgical Pathology Report Case: [id number] Authorizing Provider: Jeanna Blevins MD Collected: 06/16/2021 01:26 PM Ordering Location: [facility] Lab Received: 06/20/2021 01:26 PM Pathologist: Cait Alcazar MD Specimen: Slide Consultation 06/21/2021 3:00 PM CDT [facility] Embedded Images 06/21/2021 3:00 PM CDT [facility] Pathology/Cytolo gy SURGICAL PATHOLOGY CONSULTATION AND REPORT ON REFERRED SLIDES PREPARED ELSEWHERE / Unknown 06/16/2021 1:26 PM CDT 06/20/2021 1:26 PM CDT Jeanna Blevins MD LAB - PATHOLOGY/CYTO LOGY ORDERABLES [facility] [address] [place], [place] [id number] [place] [address] documented in this encounter Visit Diagnoses Diagnosis Illness, unspecified documented in this encounter Care Teams Flight Test Supervisor Relationship Specialty Start Date End Date Miguel Aviles MD [address] [place] [phone] PCP - General 01/16/18 documented as of this encounter
--- OUTSIDE RECORDS SUMMARY | 2025-01-06 19:46 | XMS_ITS | Clinical Summary ---
Author Organization [facility] Address [address] [facility] [place] [address] Care Team Providers Care Merry Go Round Operator Name Role Phone Miguel Aviles MD Primary Care Provider +1- [phone] Source Comments [facility],non-owned Affiliates and Associated Physician Practices is amultiple site organization consisting of ambulatory clinics and hospital sitesin [place], [place], [place] and [place]. This disclosure is being madepursuant to the Care Everywhere program and may not contain all information available regarding this patient. Last updated 18.[facility] Social History Tobacco Use Types Packs/Day Years Used Date Smoking Tobacco: Never Assessed Sex and Gender Information Value Date Recorded Sex Assigned at Not on file Gender Identity Not on file Sexual Orientation Not on file Plan of Treatment Health Maintenance Due Date Last Done Comments COLOGUARD (AGES 45-75) - COL ON CA SCREENING 1950 COLON MONITORING 1950 COLONOSCOPY - COLON CA SCREENING 1951 CT COLONOGRAPHY - COLON CA SCREENING 1950 Colorectal Cancer Screening 1950 FIT - COLON CA SCREENING 1951 FLEX SIG - COLON CA SCREENING 1950 LIPID TESTING 1950 MEDICARE AWV 12 MONTHS 1950 HEPATITIS C SCREENING 03/11/1969 DTAP/TDAP/TD VACCINES (1 - Tdap) 1970 PNEUMOCOCCAL VACCINE 50+ (1 of 1 - PCV) 2001 ZOSTER VACCINE (1 of 2) 2001 COVID-19 VACCINE ( - 2023-2 5 season) 2024 DEPRESSION SCREENING 09/30/2024 INFLUENZA VACCINE (Season Ended) 2025 Respiratory Syncytial Virus (RSV) Vaccine Pt: or over 60 yrs (1 - 1-dose 75+ series) 2026 HEPATITIS B VACCINE Aged Out No longe r eligible based on patient's age to complete this topic HIB VACCINE Aged Out No longer eligi ble based on patient's age to complete this topic HPV VACCINE Aged Out No longer eligi ble based on patient's age to complete this topic MENINGOCOCCAL (Group B) VACC INE SHARED DECISION-MAKING Aged Out No longer eligibl e based on patient's age to complete this topic MENINGOCOCCAL GROUPS A/C/Y/W VACCINE Aged Out No longer eligible b ased on patient's age to complete this topic Care Teams Merry Go Round Operator Relationship Specialty Start Date End Date Miguel Aviles MD [facility] [place] [phone] PCP - General 01/16/18
--- OUTSIDE RECORDS SUMMARY | 2025-01-06 23:46 | XMS_ITS | Encounter Summary ---
Author Organization [facility] Address [address] [facility] [place] [address] Care Team Providers Care Metal Spraying Machine Operator Name Role Phone Miguel Aviles MD Primary Care Provider +1- [phone] Encounter Details Date Type Department Care Team (Late st Contact Info) Description 06/20/2021 Lab Requisition [facility] [address] [place] [address] Jeanna Blevins MD [address] [place], [place] [id number] Illness, unspecified Social History Tobacco Use Types [...] Diagnosis URINE, VOIDED, THIN PREP, CYTOLOGY (OSC: [id number]; 06/16/2021): - Adequate for evaluation - Negative for high-grade urothelial cell carcinoma - Urothelial cells and red blood cells 06/21/2021 3:00 PM CDT [facility] Microscopic Description and Comment Microscopic examination substantiates the final diagnosis. 06/21/2021 3:00 PM CDT [facility] Clinical History HEMATURIA, CYSTOSCOPY NEGATIVE 06/21/2021 3:00 PM CDT [facility] Materials Received Prepared slide received from [facility] [place] [facility] [id number]. All material will be returned. 06/21/2021 3:00 PM CDT [facility] Disclaimer The performance characteristics of all immunohistochemical and indirect immunofluorescence stains (if any) cited in this report were determined by the Histopathology Laboratory of [facility]. Some of these tests were developed by [...] attending (teaching) pathologist. 06/21/2021 3:00 PM CDT [facility] Case Report Surgical Pathology Report Case: [id number] Authorizing Provider: Jeanna Blevins MD Collected: 06/16/2021 01:26 PM Ordering Location: [facility] Lab Received: 06/20/2021 01:26 PM Pathologist: Cait Alcazar MD Specimen: Slide Consultation 06/21/2021 3:00 PM CDT [facility] Embedded Images 06/21/2021 3:00 PM CDT [facility] Pathology/Cytolo gy SURGICAL PATHOLOGY CONSULTATION AND REPORT ON REFERRED SLIDES PREPARED ELSEWHERE / Unknown 06/16/2021 1:26 PM CDT 06/20/2021 1:26 PM CDT Jaenna Blevins MD LAB - PATHOLOGY/CYTO LOGY ORDERABLES [facility] [address] [place], [place] [id number] [place] [address] documented in this encounter Visit Diagnoses Diagnosis Illness, unspecified documented in this encounter Care Teams Metal Spraying Machine Operator Relationship Specialty Start Date End Date Miguel Aviles MD [address] [place] [phone] PCP - General 01/16/18 documented as of this encounter
--- OUTSIDE RECORDS SUMMARY | 2025-01-06 23:46 | XMS_ITS | Clinical Summary ---
Author Organization [facility] Address [address] [facility] [address] Care Team Providers Care Boiler Plant Worker Name Role Phone Miguel Aviles MD Primary Care Provider +1- [phone] Source Comments [facility],non-owned Affiliates and Associated Physician Practices is amultiple site organization consisting of ambulatory clinics and hospital sitesin [place], [place], [place] and [place]. This disclosure is being madepursuant to the Care Everywhere program and may not contain all information available regarding this patient. Last updated 18.[facility] Social History Tobacco Use Types Packs/Day Years [...] age to complete this topic Care Teams Boiler Plant Worker Relationship Specialty Start Date End Date Miguel Aviles MD [facility] [place] [phone] PCP - General 01/16/18
[2025-01-06 23:55] LABS: Basophils Absolute Auto 0.1 K/mm3 (0.0-0.1); Basophils Percent Auto 0.8 % (0.2-1.2); Eosinophils Absolute Auto 0.1 K/mm3 (0-0.3); Eosinophils Percent Auto 0.6 % (0-4.4); Hematocrit 43.8 % (42.0-52.0); Hemoglobin 14.5 g/dL (14.0-18.0); Immature Granulocyte Absolute 0.02 K/mm3 (0.00-0.031); Immature Granulocyte Percent A 0.2 % (0-0.5); Lymphocytes Absolute Auto 2.16 K/mm3 (0.9-3.2); Lymphocytes Percent Auto 25.1 % (18.3-44.2); Mean Corpuscular HGB Conc 33.1 g/dl (32-36); Mean Corpuscular Hemoglobin 29.8 pg (26-34); Mean Corpuscular Volume 90.1 fl (80-100); Mean Platelet Volume 8.5 fl (7.4-10.4); Monocytes Absolute Auto 0.7 K/mm3 (0.1-0.6); Monocytes Percent Auto 7.5 % (2.6-8.5); Neutrophils Absolute Auto 5.7 K/mm3 (1.3-6.7); Neutrophils Percent Auto 65.8 % (45.5-73.1); Platelet Count Result 304 k/mm3 (150-375); Red Blood Count 4.86 M/mm3 (4.6-6.20); Red Cell Distribution Width 13.2 % (11.5-14.5); White Blood Count 8.6 K/mm3 (4.5-10.0)
[2025-01-07 00:04] LABS: Alanine Aminotransferase 24 U/L (6-50); Albumin Level 4.9 g/dL (3.5-5.1); Alkaline Phosphatase 70 U/L (38-126); Anion Gap 10 mmol/L (4-12); Aspartate Amino Transferase 29 U/L (17-59); Bilirubin,Total 0.6 mg/dL (0.2-1.3); Blood Urea Nitrogen 21 mg/dL (9-20); Calcium 9.7 mg/dL (8.4-10.2); Carbon Dioxide 27 mmol/L (22-30); Chloride 101 mmol/L (98-107); Estimated CRCL calculation 55 ml/min; Estimated Glomerular Filt Rate > 60; Glucose 116 mg/dL (65-110); Potassium 4.1 mmol/L (3.4-5.0); Sodium 138 mmol/L (137-145)
[2025-01-07 00:06] LABS: INR 0.9; Prothrombin Time 12.6 Seconds (11.1-14.7)
[2025-01-07 00:08] LABS: Partial Thromboplastin Time 24.2 Seconds (22.3-36.8)
[2025-01-07 00:16] LABS: Add Urine Microscopic? YES; Appearance Urine Clear (Clear); Bacteria Urine None Seen /hpf; Bilirubin Urine Negative (Negative); Blood Urine 3+ (Negative); Color Urine Yellow (Yellow); Glucose Urine UA Negative (Negative); Ketones Urine Trace mg/dL (Negative); Leukocyte Esterase Ur Negative LEU/UL (Negative); Nitrate Urine Negative (Negative); Non Pathogenic Casts 0-2; Protein Urine 1+ mg/dL (Negative); RBC Urine >100 /hpf (0-2); Specific Grav Ur 1.009 (1.001-1.035); Squamous Epithelial Cell Urine None Seen /hpf (Few); Urobilinogen Urine 0.2 mg/dL (<2.0); WBC Urine 0-5 /hpf (0-3); pH Urine 5.5 (5.0-9.0)
[2025-01-07 01:24] VITALS: BP 153/96; PULSE 73; RESP 15; O2SAT 97
--- NOTE | 2025-01-07 02:39 | ED_ITS ---
HPI - General Adult General Chief complaint: Urogenital-Male Stated complaint: hematuria Time Seen by Provider: 01/06/25 23:24 History of Present Illness HPI narrative: Patient is a 4-year-old gentleman presents emergency department chief complaint of hematuria. Patient reports that he noticed that his urine was dark thought that he had some blood in his urine patient also reports that some discomfort in his right flank area patient reports no blood clots reports that his urine was at most a pink lemonade,color. Patient reports he is not on anticoagulants reports that he does take a baby aspirin Related Data Home Medications ?Medication ?Instructions ?Recorded ?Confirmed ?Last Taken ?Type cholecalciferol (vitamin D3) 25 25 mcg PO DAILY 12/28/21 10/16/24 01/07/22 History mcg (1,000 unit) tablet (Vitamin D3) aspirin 81 mg tablet,delayed 81 mg PO DAILY 07/23/22 10/16/24 Unknown History release (Adult Low Dose Aspirin) Allergies Allergy/AdvReac Type Severity Reaction Status Date / Time No Known Allergies Allergy Mild Verified 01/06/25 19:51 Review of Systems 2 Review of Systems: A 10 system review of systems was completed on the patient and is negative except for what is stated in the HPI. Nursing and ancillary documentation was reviewed. PMFSH Family History Family History Other Depression Diabetes mellitus Family history of cardiovascular disease Hypertension Social History Social History Smoking status: Former smoker Tobacco type: cigarettes Alcohol intake: current Drinks per week: 7 Alcohol use details: wine Substance use: never Substance use type: does not use Do You Feel Safe in your Home?: Yes Lack of Transportation: No Lack of Food: Never True Current Housing: I Have Housing Concerned About Future Housing: No Difficulty Paying Gas/Electric Bills: No Difficulty Paying for Meds: No Currently Unemployed: No Education: Bachelor's Degree Difficulty w/ Childcare or Family Care: No Living arrangements: with family Gender identity (if verbalized by the patient): Male Spiritual care concerns: No Exam 2 Narrative: GENERAL: Well-appearing, well-nourished, and in no acute distress. HEAD: Normocephalic, atraumatic. EYES: PERRLA and EOMI. ENT: Nares clear, no rhinorrhea or epistaxis. Mucous membranes moist. NECK: Supple. CHEST: Clear to auscultation. No respiratory distress. HEART: Regular rate and rhythm. No murmur heard. Normal peripheral pulses. ABDOMEN: Soft, nontender, nondistended, normal active bowel sounds. EXTREMITIES: Normal range of motion. No edema. SKIN: Warm, dry, no rash. NEURO: No focal deficits. Alert and oriented x3. PSYCH: Normal mood and affect. Course Vital Signs Vital signs: Vital Signs Temperature 36.3 C L 01/06/25 19:45 Pulse Rate 77 01/06/25 19:45 Respiratory Rate 15 01/06/25 19:45 Blood Pressure 159/105 H 01/06/25 19:45 Pulse Oximetry 99 01/06/25 19:45 Oxygen Delivery Room Air 01/06/25 19:45 Temperature 36.3 C L 01/06/25 19:45 Pulse Rate 73 01/07/25 01:24 Respiratory Rate 15 01/07/25 01:24 Blood Pressure 153/96 H 01/07/25 01:24 Pulse Oximetry 97 01/07/25 01:24 Oxygen Delivery Room Air 01/06/25 19:45 Medical Decision Making MDM Narrative Medical decision making narrative: Differential diagnosis includes ureterolithiasis, UTI, pyelonephritis, bladder lesion, Laboratory studies were obtained which showed greater than 100 red blood cells on the urine but no evidence of a UTI electrolytes showed normal renal function with a creatinine of 1.09 CBC showed a white count of 8.[address] scan showed a 3 mm proximal stone with mild right-sided hydronephrosis. Vital Signs Vital Signs: Vital Signs Temperature 36.3 C L 01/06/25 19:45 Pulse Rate 77 01/06/25 19:45 Respiratory Rate 15 01/06/25 19:45 Blood Pressure 159/105 H 01/06/25 19:45 Pulse Oximetry 99 01/06/25 19:45 Oxygen Delivery Room Air 01/06/25 19:45 Temperature 36.3 C L 01/06/25 19:45 Pulse Rate 73 01/07/25 01:24 Respiratory Rate 15 01/07/25 01:24 Blood Pressure 153/96 H 01/07/25 01:24 Pulse Oximetry 97 01/07/25 01:24 Oxygen Delivery Room Air 01/06/25 19:45 Lab Data 01/06/25 23:47 01/06/25 23:47 Labs: Lab Results 01/06/25 Range/Units 23:47 WBC 8.6 (4.5-10.0) K/mm3 RBC 4.86 (4.6-6.20) M/mm3 Hgb 14.5 (14.0-18.0) g/dL Hct 43.8 (42.0-52.0) % MCV 90.1 (80-100) fl MCH 29.8 (26-34) pg MCHC 33.1 (32-36) g/dl RDW 13.2 (11.5-14.5) % Plt Count 304 (150-375) k/mm3 MPV 8.5 (7.4-10.4) fl Immature Gran % (Auto) 0.2 (0-0.5) % Neut % (Auto) 65.8 (45.5-73.1) % Lymph % (Auto) 25.1 (18.3-44.2) % Branch % (Auto) 7.5 (2.6-8.5) % Eos % (Auto) 0.6 (0-4.4) % Baso % (Auto) 0.8 (0.2-1.2) % Lymph # (Auto) 2.16 (0.9-3.2) K/mm3 Branch # (Auto) 0.7 H (0.1-0.6) K/mm3 Eos # (Auto) 0.1 (0-0.3) K/mm3 Baso # (Auto) 0.1 (0.0-0.1) K/mm3 Abs Immat Gran (auto) 0.02 (0.00-0.031) K/mm3 Absolute Neuts (auto) 5.7 (1.3-6.7) K/mm3 Absolute Nucleated RBC 0.000 (0.0-0.012) K/mm3 Nucleated RBC % 0.0 (0.0-0.2) % PT 12.6 (11.1-14.7) Seconds INR 0.9 APTT 24.2 (22.3-36.8) Seconds Sodium 138 (137-145) mmol/L Potassium 4.1 (3.4-5.0) mmol/L Chloride 101 (98-107) mmol/L Carbon Dioxide 27 (22-30) mmol/L Anion Gap 10 (4-12) mmol/L BUN 21 H (9-20) mg/dL Creatinine 1.09 (0.7-1.3) mg/dL Estim Creat Clear Calc 55 ml/min Estimated GFR > 60 (59 - ) Glucose 116 H (65-110) mg/dL Calcium 9.7 (8.4-10.2) mg/dL Total Bilirubin 0.6 (0.2-1.3) mg/dL AST 29 (17-59) U/L ALT 24 (6-50) U/L Alkaline Phosphatase 70 (38-126) U/L Total Protein 8.0 (6.3-8.2) g/dL Albumin 4.9 (3.5-5.1) g/dL Urine Color Yellow (Yellow) Urine Appearance Clear (Clear) Urine pH 5.5 (5.0-9.0) Ur Specific [place] 1.009 (1.001-1.035) Urine Protein 1+ H (Negative) mg/dL Urine Glucose (UA) Negative (Negative) mg/dL Urine Ketones Trace H (Negative) mg/dL Ur Blood (Man) 3+ H (Negative) Urine Nitrate Negative (Negative) Urine Bilirubin Negative (Negative) Urine Urobilinogen 0.2 (<2.0) mg/dL Leukocyte Esterase Rfl Negative (Negative) GARRET/UL Urine RBC >100 H (0-2) /hpf Urine WBC 0-5 (0-3) /hpf Ur Squamous Epith Cells None seen (Few) /hpf Urine Bacteria None seen /hpf Urine Casts 0-2 Discharge Plan Discharge Clinical Impression: Hematuria, Ureterolithiasis Patient Disposition: Home Condition: Stable Instructions: Antibiotic Form, Kidney Stones (ED), Hematuria (ED), How to Strain Your Urine (ED), Flank Pain (ED) Patient Language: Bengali Prescriptions: New ondansetron 4 mg tablet,disintegrating 4 mg PO Q8H PRN (Reason: nausea and vomiting) Qty: 10 0RF tamsulosin [Flomax] 0.4 mg capsule 0.4 mg PO DAILY Qty: 10 0RF hydrocodone-acetaminophen 5-325 mg tablet 1 tablet PO Q6H PRN (Reason: pain) 3 Days Qty: 12 0RF No Action cyanocobalamin (vitamin B-12) 1,000 mcg capsule 1,000 mcg PO DAILY Qty: 100 0RF sildenafil [Viagra] 100 mg tablet 100 mg PO DAILY PRN (Reason: sexual activity) Qty: 30 1RF Rx Instructions: administer 30 minutes to 4 hours before activity aspirin [Adult Low Dose Aspirin] 81 mg tablet,delayed release (DR/EC) 81 mg PO DAILY cholecalciferol (vitamin D3) [Vitamin D3] 25 mcg (1,000 unit) Tablet 25 mcg PO DAILY (DME) CPAP See Rx Instructions .Route .MEDSUPPLY Qty: 1 0RF Rx Instructions: Resmed AirSense 11 CPAP at 6 cm H2O, size medium Renetta [employer]agexwear FFM, CPAP filters/tubing and heated humidity. metformin 500 mg tablet extended release 24 hr See Rx Instructions .ROUTE .COMPLEX Qty: 90 3RF Dose Instruction: TAKE 1 TABLET EVERY EVENING Rx Instructions: TAKE 1 TABLET EVERY EVENING lovastatin 10 mg tablet See Rx Instructions .ROUTE .COMPLEX Qty: 90 3RF Dose Instruction: TAKE 1 TABLET EVERY EVENING Rx Instructions: TAKE 1 TABLET EVERY EVENING lisinopril 10 mg tablet See Rx Instructions .ROUTE .COMPLEX Qty: 90 3RF Dose Instruction: TAKE 1 TABLET DAILY Rx Instructions: TAKE 1 TABLET DAILY Follow-up/Referrals: Miguel Aviles MD [Primary Care Provider] - Ab Menjivar MD [Physician] - Time of Disposition: 02:49
[2025-01-07] MEDS: TAMSULOSIN HCL 0.4 MG CAPSULE PO (02:52)
[2025-01-07 03:00] VITALS: BP 158/84; PULSE 76; RESP 15; O2SAT 98
== END 2025-01-07 03:02 | disposition home or self-care (01) ==
PROVIDERS: Emergency Provider Emergency Medicine; PCP Family Medicine
DX: N20.1 Calculus of ureter (principal); R31.9 Hematuria, unspecified; Z79.82 Long term (current) use of aspirin
CPT/HCPCS: 36415; 74176; 80053; 81001; 85025; 85610; 85730; 99284; A9270

== ENCOUNTER 2025-04-12 08:31 | Outpatient (CLI) | payer MEDICARE, SELFPAY ==
--- OUTSIDE RECORDS SUMMARY | 2025-04-12 08:39 | XMS_ITS | Clinical Summary ---
Author Organization [facility] Address [address] [facility] [place] [address] Care Team Providers Care Camp Dining Room Attendant Name Role Phone Miguel Aviles MD Primary Care Provider +1- [phone] Source Comments [facility],non-owned Affiliates and Associated Physician Practices is amultiple site organization consisting of ambulatory clinics and hospital sitesin [place], [place], [place] and [place]. This disclosure is being madepursuant to the Care Everywhere program and may not contain all information available regarding this patient. Last updated 18.[facility] Social History Tobacco Use Types Packs/Day Years Used Date Smoking Tobacco: Never Assessed Sex and Gender Information Value Date Recorded Sex Assigned at Not on file Legal Sex Male 12:24 PM CDT Gender Identity Not on file Sexual Orientation [...] COLON CA SCREENING 1950 LIPID TESTING 1950 HEPATITIS C SCREENING 03/11/1969 DTAP/TDAP/TD VACCINES (1 - Tdap) 1970 PNEUMOCOCCAL VACCINE 50+ (1 of 1 - PCV) 2001 ZOSTER VACCINE (1 of 2) 2001 COVID-19 VACCINE ( - 2023-2 5 season) 2024 DEPRESSION SCREENING 09/30/2024 INFLUENZA VACCINE (#1) 2025 Respiratory Syncytial Virus (RSV) Vaccine Pt: [...] on patient's age to complete [place] [address] MEDICARE AET[employer] Care Teams Camp Dining Room Attendant Relationship Specialty Start Date End Date Miguel Aviles MD [address] [place] [phone] PCP - General 01/16/18
--- OUTSIDE RECORDS SUMMARY | 2025-04-12 08:39 | XMS_ITS | Encounter Summary ---
Author Organization [facility] Address [address] [place] [address] Care Team Providers Care Medical Office Worker Name Role Phone Miguel Aviles MD Primary Care Provider +1- [phone] Encounter Details Date Type Department Care Team (Late st Contact Info) Description 06/20/2021 Lab Requisition [facility] [address] [place] [address] Jeanna Blevins MD [address] [place], [place] [id number] Illness, unspecified Social History Tobacco Use Types [...] Diagnosis URINE, VOIDED, THIN PREP, CYTOLOGY (OSC: [id number]; 06/16/2021): - Adequate for evaluation - Negative for high-grade urothelial cell carcinoma - Urothelial cells and red blood cells 06/21/2021 3:00 PM CDT [facility] at 1500 CDT Microscopic Description and Comment Microscopic examination substantiates the final diagnosis. 06/21/2021 3:00 PM CDT [facility] Clinical History HEMATURIA, CYSTOSCOPY NEGATIVE 06/21/2021 3:00 PM CDT [facility] Materials Received Prepared slide received from [facility] [id number]. All material will be returned. 06/21/2021 3:00 PM CDT [facility] Disclaimer The performance characteristics of all immunohistochemical and indirect immunofluorescence stains (if any) cited in this report were determined by the Histopathology Laboratory of [facility]. Some of these tests were developed by [...] attending (teaching) pathologist. 06/21/2021 3:00 PM CDT [facility] Case Report Surgical Pathology Report Case: [id number] Authorizing Provider: Jeanna Blevins MD Collected: 06/16/2021 01:26 PM Ordering Location: [facility] Lab Received: 06/20/2021 01:26 PM Pathologist: Cait Alcazar MD Specimen: Slide Consultation 06/21/2021 3:00 PM CDT [facility] Embedded Images 06/21/2021 3:00 PM CDT [facility] Pathology/Cytolo gy SURGICAL PATHOLOGY CONSULTATION AND REPORT ON REFERRED SLIDES PREPARED ELSEWHERE / Unknown 06/16/2021 1:26 PM CDT 06/20/2021 1:26 PM CDT us Jeanna Blevins MD LAB - PATHOLOGY/CYTOLOGY ORDERAB LES Final Result [facility] [address] [place], [place] [id number] [place] [address] documented in this encounter Visit Diagnoses Diagnosis Illness, unspecified documented in this encounter Care Teams Medical Office Worker Relationship Specialty Start Date End Date Miguel Aviles MD [address] [place] [phone] PCP - General 01/16/18 documented as of this encounter
[2025-04-12 17:34] LABS: Hematocrit 39.7 % (42.0-52.0); Hemoglobin 12.9 g/dL (14.0-18.0); Immature Granulocyte Percent A 0.2 % (0-0.5); Lymphocytes Absolute Auto 2.31 K/mm3 (0.9-3.2); Mean Corpuscular HGB Conc 32.5 g/dl (32-36); Mean Corpuscular Hemoglobin 29.5 pg (26-34); Mean Corpuscular Volume 90.6 fl (80-100); Nucleated Red Blood Cells Absolute Auto 0.000 K/mm3 (0.0-0.012); Nucleated Red Blood Cells Perc 0.0 % (0.0-0.2); Platelet Count Result 271 k/mm3 (150-375); Red Blood Count 4.38 M/mm3 (4.6-6.20); White Blood Count 5.5 K/mm3 (4.5-10.0)
[2025-04-12 17:38] LABS: Anion Gap 10 mmol/L (4-12); Blood Urea Nitrogen 21 mg/dL (9-20); Calcium 8.8 mg/dL (8.4-10.2); Carbon Dioxide 26 mmol/L (22-30); Chloride 103 mmol/L (98-107); Estimated Glomerular Filt Rate > 60; Glucose 114 mg/dL (65-110); Potassium 4.4 mmol/L (3.4-5.0); Sodium 139 mmol/L (137-145)
== END 2025-04-12 08:32 | disposition home or self-care (01) ==
LOC: ANHGOSHLAB 08:32
PROVIDERS: PCP Family Medicine; Visit Provider Nurse Practitioner Family
DX: D64.9 Anemia, unspecified (principal); I10 Essential (primary) hypertension
CPT/HCPCS: 36415; 80048; 85025

== ENCOUNTER 2025-07-01 09:05 | Outpatient (CLI) | payer MEDICARE, SELFPAY ==
--- OUTSIDE RECORDS SUMMARY | 2025-07-01 09:28 | XMS_ITS | Encounter Summary ---
Author Organization [facility] Address [address] [place] [address] Care Team Providers Care Assistant Field Hockey Coach Name Role Phone Miguel Aviles MD Primary Care Provider [phone]- [phone] Encounter Details Date Type Department Care Team (Late st Contact Info) Description 06/20/2021 Lab Requisition [facility] [address] [place] [address] Jeanna Blevins MD [address] [place], [place] [id number] Illness, unspecified Social History Tobacco Use Types [...] Diagnosis URINE, VOIDED, THIN PREP, CYTOLOGY (OSC: [id number]; 06/16/2021): - Adequate for evaluation - Negative for high-grade urothelial cell carcinoma - Urothelial cells and red blood cells 06/21/2021 3:00 PM CDT [facility] at 1500 CDT Microscopic Description and Comment Microscopic examination substantiates the final diagnosis. 06/21/2021 3:00 PM CDT [facility] Clinical History HEMATURIA, CYSTOSCOPY NEGATIVE 06/21/2021 3:00 PM CDT [facility] Materials Received Prepared slide received from [facility] [id number]. All material will be returned. 06/21/2021 3:00 PM CDT [facility] Disclaimer The performance characteristics of all immunohistochemical and indirect immunofluorescence stains (if any) cited in this report were determined by the [facility]opathology [facility] of [facility]. Some of these tests were developed [...] attending (teaching) pathologist. 06/21/2021 3:00 PM CDT [facility] Case Report Surgical Pathology Report Case: [id number] Authorizing Provider: Jeanna Blevins MD Collected: 06/16/2021 01:26 PM Ordering Location: [facility] Received: 06/20/2021 01:26 PM Pathologist: Cait Alcazar MD Specimen: Slide Consultation 06/21/2021 3:00 PM CDT [facility] Embedded Images 06/21/2021 3:00 PM CDT [facility] Pathology/Cytolo gy SURGICAL PATHOLOGY CONSULTATION AND REPORT ON REFERRED SLIDES PREPARED ELSEWHERE / Unknown 06/16/2021 1:26 PM CDT 06/20/2021 1:26 PM CDT us Jeanna Blevins MD LAB - PATHOLOGY/CYTOLOGY ORDERAB LES Final Result [facility] [address] [place], [place] [id number] [place] [address] documented in this encounter Visit Diagnoses Diagnosis Illness, unspecified documented in this encounter Care Teams Assistant Field Hockey Coach Relationship Specialty Start Date End Date Miguel Aviles MD [address] [place] [phone] PCP - General 01/16/18 documented as of this encounter
--- OUTSIDE RECORDS SUMMARY | 2025-07-01 09:28 | XMS_ITS | Clinical Summary ---
Author Organization [facility] Address [address] [place] [address] Care Team Providers Care Gas Meter Reader Name Role Phone Miguel Aviles MD Primary Care Provider [phone]- [phone] Source Comments [facility],non-owned Affiliates and Associated Physician Practices is amultiple site organization consisting of ambulatory clinics and hospital sitesin [place], [place], [place] and [place]. This disclosure is being madepursuant to the Care Everywhere program and may not contain all information available regarding this patient. Last updated 18.[facility] Social History Tobacco Use Types Packs/Day Years [...] 2001 ZOSTER VACCINE (1 of 2) 2001 DEPRESSION SCREENING 09/30/2024 COVID-19 VACCINE ( - 2023-2 5 season) 2025 INFLUENZA VACCINE (#1) 2025 Respiratory Syncytial Virus [...] patient's age to complete [place] [address] [place] [address] [employer] Care Teams Gas Meter Reader Relationship Specialty Start Date End Date Miguel Aviles MD [address] [place] [phone] PCP - General 01/16/18
[2025-07-01 13:15] LABS: Alanine Aminotransferase 18 U/L (6-50); Albumin Level 4.5 g/dL (3.5-5.1); Alkaline Phosphatase 67 U/L (38-126); Anion Gap 10 mmol/L (4-12); Aspartate Amino Transferase 35 U/L (17-59); Bilirubin,Total 0.6 mg/dL (0.2-1.3); Blood Urea Nitrogen 19 mg/dL (9-20); Calcium 9.4 mg/dL (8.4-10.2); Carbon Dioxide 24 mmol/L (22-30); Chloride 102 mmol/L (98-107); Cholesterol 196 mg/dL (0-200); Estimated Glomerular Filt Rate > 60; Glucose 114 mg/dL (65-110); HDL Direct 52 mg/dL; Potassium 3.9 mmol/L (3.4-5.0); Sodium 136 mmol/L (137-145); Total Protein 7.8 g/dL (6.3-8.2); Triglycerides 134 mg/dL (<150)
[2025-07-01 13:45] LABS: Hemoglobin A1C 6.1 % (<5.7)
== END 2025-07-01 09:06 | disposition home or self-care (01) ==
LOC: ANHGOSHLAB 09:06
PROVIDERS: PCP Family Medicine; Visit Provider Family Medicine
DX: E78.5 Hyperlipidemia, unspecified (principal); R73.03 Prediabetes
CPT/HCPCS: 36415; 80053; 80061; 83036